=== PATIENT | male | born 1960 | race Caucasian/White ===

== ENCOUNTER 2020-09-20 06:34 | Outpatient (CLI) | payer OTHER ==
[~2020-09-20] VITALS: Ht 180.3 cm; Wt 120.0 kg
[2020-09-20] MEDS ORDERED: SEMA1PEN3 SQ (11:46)
[2020-09-20] MEDS ORDERED: HYDR25TA4 PO (11:52)
[2020-09-20] MEDS ORDERED: GABA300C PO (11:52)
[2020-09-20] MEDS ORDERED: ATOR40TA70 PO (11:52)
[2020-09-20] MEDS ORDERED: GLIP10TA13 PO (11:52)
[2020-09-20] MEDS ORDERED: INSU100V6 SQ ×2 (11:52)
[2020-09-20] MEDS ORDERED: LOSA50TA63 PO (11:52)
== END 2020-09-20 12:27 | disposition home or self-care (01) ==
LOC: PREOP 06:34
PROVIDERS: ATTEND Internal Medicine
DX: Z01.818 Encounter for other preprocedural examination (principal)

== ENCOUNTER 2020-09-28 07:14 | Day surgery (SDC) | payer OTHER ==
--- NOTE | 2020-09-20 10:01 | HISTORY AND PHYSICAL ---
DATE OF SERVICE: COLONOSCOPY HISTORY AND PHYSICAL HISTORY OF PRESENT ILLNESS: The patient is a 59-year-old white male referred by Dr. Mcleod for screening colonoscopy. He is deemed to be of higher than average risk as his mother was diagnosed with colon cancer at the age of 59. His last colonoscopy was he believes 8 years ago, at which time he did have several polyps removed. He has noted no bright red blood per rectum, melena. Denies change in bowel habit or abdominal pain. Reports that he has been generally feeling well. He has type 2 diabetes that is insulin requiring only basal insulin, he takes twice a day. Occasionally, he will have morning lows this happened a couple of days ago when he only had 2 bowls of soup the day before and his blood sugar was 70 with hypoglycemic symptoms mild. PAST MEDICAL HISTORY: Significant for hypertension, hyperlipidemia with no known history for coronary artery disease. FAMILY HISTORY: Mother diagnosed with colon cancer at age of 59. Father of unclear cause at the age of 89. No other family history for GI tract malignancy that he is aware of. PAST SURGICAL HISTORY: He has had bilateral carpal tunnel release and what sounds like bilateral cubital tunnel release. SOCIAL HISTORY: He is retired [employer] with a [id number] smoking history, but quit 15 years ago. He still reports 2 to 3 drinks per night predominantly whiskey. REVIEW OF SYSTEMS: CONSTITUTIONAL: The patient denies night sweats, chills, fever, or change in weight. CARDIOVASCULAR: The patient denies chest discomfort, orthopnea, PND, pedal edema, syncope or presyncope. RESPIRATORY: The patient reports no wheezing or dyspnea, was stable longstanding dry cough. GASTROINTESTINAL: As noted in the HPI. PHYSICAL EXAMINATION: GENERAL: Reveals a pleasant overweight white male in no acute distress. VITAL SIGNS: Weight 268 pounds, blood pressure 110/70. HEENT: Unremarkable. Sclerae nonicteric. CHEST: Clear to auscultation. CARDIOVASCULAR: Revealed a regular rate and rhythm without murmur, S3 or S4. ABDOMEN: Obese, soft, nontender without mass or organomegaly. Bowel sounds positive. No bruits noted. EXTREMITIES: Reveal no cyanosis, clubbing or edema. ASSESSMENT AND PLAN: The patient is set up for screening colonoscopy on 09/14/2020. Prep instructions with the Suprep kit were given and questions were answered. I thank you for the referral of this pleasant gentleman. Job ID: [id number] DocumentID: [id number] Dictated Date: 09/06/2020 13:55:42 Nurse Advisor Date: 09/06/2020 14:39:10 Dictated By: BRIDGETTE DIAZ MD
[~2020-09-28] VITALS: Ht 180.3 cm; Wt 120.0 kg
[~2020-09-28 07:14] MED LIST: ATOR40TA70 PO; GABA300C PO; GLIP10TA13 PO; HYDR25TA4 PO; INSU100V6 SQ; LOSA50TA63 PO; SEMA1PEN3 SQ
[2020-09-28] MEDS ORDERED: LACTATED RINGERS 1,000 ML IV ONE (07:27)
[2020-09-28] MEDS ORDERED: MIDAZOLAM 2 MG/2 ML (VERSED) VIAL ONE (07:29)
[2020-09-28] MEDS ORDERED: PROPOFOL INJECTION 50 ML IV ONE (07:30)
[2020-09-28] MEDS ORDERED: LACTATED RINGERS 1,000 ML IV STA (07:35)
[2020-09-28 07:43] VITALS: BP 142/82
[2020-09-28] MEDS ORDERED: LIDOCAINE JELLY 2% 6 ML SYRINGE MM PRN (07:45)
--- NOTE | 2020-09-28 08:06 | Pre-Op Note & Conscious Sedat ---
Pre-Operative Progress Note H&P Reviewed The H&P was reviewed, patient examined and no changes noted. Date H&P Reviewed: Sep 28, 2020 Time H&P Reviewed: 08:05 Conscious Sedation Pre-Proced ASA Score 2 For ASA 3 and 4: Consider anesthesia and medical clearance. Also, for patients with a history of failed moderate sedation consider anesthesia. Airway Lungs Heart ASA score ASA 1: a normal healthy patient ASA 2: a patient with a mild systemic disease (mid diabetes, controlled hypertension, obesity ASA 3: a patient with a severe systemic disease that limits activity (angina, COPD, prior Myocardial infarction) ASA 4: a patient with an incapacitating disease that is a constant threat to life (CHF, renal failure) ASA 5: a moribund patient not expected to survive 24 hrs. (ruptured aneurysm) ASA 6: a declared brain- patient whose organs are being harvested. For emergent operations, add the letter E after the classification Mallampati Classification Grade 2 Sedation Plan Analgesia, Amnesia, Plan communicated to team members, Discussed options with patient/fam, Discussed risks with patient/fam The patient is an appropriate candidate to undergo the planned procedure, sedation, and anesthesia. The patient immediately re-assessed prior to indication. BRIDGETTE DIAZ MD Sep 28, 2020 08:06
[2020-09-28 09:25] VITALS: BP 116/61
[2020-09-28 09:30] VITALS: BP 122/62
[2020-09-28 09:35] VITALS: BP_SYST 123; BP_SYST 130; BP_DIAS 63; BP_DIAS 65
[2020-09-28 09:55] VITALS: BP 143/83
--- NOTE | 2020-09-28 10:41 | Anesthesia-General Post-Op ---
MAC Patient Condition Mental Status/LOC: Same as Preop Cardiovascular: Satisfactory Nausea/Vomiting: Absent Respiratory: Satisfactory Pain: Controlled Complications: Absent Post Op Complications Complications None Follow Up Care/Instructions Patient Instructions None needed. Anesthesiology Discharge Order Discharge Order Patient is doing well, no complaints, stable vital signs, no apparent adverse anesthesia problems. No complications reported per nursing. ARNAV KENT CRNA Sep 28, 2020 10:41
--- NOTE | 2020-09-28 13:54 | OPERATIVE REPORT ---
DATE OF SERVICE: COLONOSCOPY SUMMARY INDICATION FOR PROCEDURE: Screening colonoscopy. PROCEDURE IN DETAIL: The patient was placed in the left lateral decubitus position. Prior to undergoing colonoscopy, digital rectal evaluation was performed. Anal sphincter tone was normal. Perianal reflexes intact. The prostate is normal in size and anodular on digital inspection. No abnormalities were noted on digital inspection of the anal canal or distal rectal vault. The colonoscope was then inserted into the rectum and under direct visualization advanced to the cecum. The cecum was identified by identification of the ileocecal valve and cecal strap. Photographic documentation was obtained. Careful inspection was made as the colonoscope was withdrawn. Quality of prep was fair. FINDINGS: There was no evidence for internal or external hemorrhoids. Present in the proximal rectum was a 3 mm sessile hyperplastic-appearing polyp. It was biopsied and ablated and submitted for pathology. A similar 2 mm polyp was noted in the distal sigmoid colon. It was removed in its entirety via cold forceps. There was no bleeding at either polypectomy site. The remainder of the sigmoid colon, descending colon, splenic flexure, transverse colon, hepatic flexure, ascending colon and cecum were unremarkable with no other evidence for neoplasia or diverticular disease. ASSESSMENT: Two diminutive hyperplastic appearing polyps were removed, one from the proximal rectum, the other one from the distal sigmoid colon with an otherwise normal colonoscopy to the cecum. Considering family history, I would advocate consideration for repeat screening colonoscopy in five years. I thank you for the referral of this pleasant gentleman. Job ID: [id number] DocumentID: [id number] Dictated Date: 09/28/2020 09:33:15 Tester Regulator Date: 09/28/2020 13:53:26 Dictated By: BRIDGETTE DIAZ MD [facility]
== END 2020-09-28 10:01 | disposition home or self-care (01) ==
LOC: ENDO 07:14
PROVIDERS: ATTEND Internal Medicine
DX: Z12.11 Encounter for screening for malignant neoplasm of colon (principal); K63.5 Polyp of colon; I10 Essential (primary) hypertension; E11.9 Type 2 diabetes mellitus without complications; E78.5 Hyperlipidemia, unspecified; Z79.899 Other long term (current) drug therapy; Z80.0 Family history of malignant neoplasm of digestive organs; Z79.4 Long term (current) use of insulin; Z86.010 Personal history of colon polyps; Z87.891 Personal history of nicotine dependence

== ENCOUNTER → 2020-11-07 | Outpatient (CLI) | payer OTHER | LOC: LABNPT 06:21 | PROVIDERS: ATTEND Family Medicine | DX: Z20.822 Contact with and (suspected) exposure to COVID-19 (principal) | CPT/HCPCS: 87635 ==

== ENCOUNTER 2020-11-09 19:43 | Outpatient (CLI) | payer OTHER | END 2020-11-10 06:25 | disposition home or self-care (01) | LOC: SLEEP 19:43 | PROVIDERS: ATTEND Family Medicine | DX: G47.33 Obstructive sleep apnea (adult) (pediatric) (principal); G47.10 Hypersomnia, unspecified; I10 Essential (primary) hypertension; E11.65 Type 2 diabetes mellitus with hyperglycemia; S91.109A Unspecified open wound of unspecified toe(s) without damage to nail, initial encounter; Z20.822 Contact with and (suspected) exposure to COVID-19 | CPT/HCPCS: 95811 ==

== ENCOUNTER → 2021-02-12 | Outpatient (CLI) | payer OTHER | LOC: LABNPT 08:30 | PROVIDERS: ATTEND Family Medicine | DX: G47.33 Obstructive sleep apnea (adult) (pediatric) (principal); Z20.822 Contact with and (suspected) exposure to COVID-19 | CPT/HCPCS: 87635 ==

== ENCOUNTER 2021-02-14 18:59 | Outpatient (CLI) | payer OTHER | END 2021-02-15 07:45 | disposition home or self-care (01) | LOC: SLEEP 18:59 | PROVIDERS: ATTEND Otolaryngology Otolaryngology/Facial Plastic Surgery | DX: G47.33 Obstructive sleep apnea (adult) (pediatric) (principal) | CPT/HCPCS: 95811 ==